=== PATIENT | male | born 1980 | race Caucasian/White ===

== ENCOUNTER 2022-08-16 17:26 | Emergency (ER) | payer BC ==
[~2022-08-16] VITALS: Ht 180.3 cm; Wt 87.5 kg
[2022-08-16] MEDS ORDERED: AMLODIPINE BESYLATE 10 MG TABLET ONE (18:08)
[2022-08-16] MEDS ORDERED: ASPIRIN 81 MG TAB.CHEW ONE (18:08)
[2022-08-16 18:27] LABS: BASOPHILS # (AUTO) 0.2 K/uL (0.0-0.2); BASOPHILS % (AUTO) 1.9 % (0.0-2.0); EOSINOPHILS % (AUTO) 3.1 % (0.0-6.0); HEMATOCRIT 50 % (39-51); HEMOGLOBIN 16.6 g/dL (13.5-17.5); LYMPHOCYTES # (AUTO) 1.6 K/uL (0.8-4.8); LYMPHOCYTES % (AUTO) 18.4 % (20.0-44.0); MEAN CORPUSCULAR HGB CONC 34 g/dl (31.0-36.0); MEAN CORPUSCULAR VOLUME 88 fL (80-96); MONOCYTES # (AUTO) 0.7 K/uL (0.1-1.30); MONOCYTES % (AUTO) 8.4 % (2.0-12.0); NEUTROPHILS # (AUTO) 5.8 K/uL (1.8-8.9); NEUTROPHILS % (AUTO) 68.2 % (43.0-81.0); PLATELET COUNT (AUTO) 319 K/uL (150-450); RED BLOOD CELL COUNT(AUTO) 5.63 MIL/uL (4.5-6.0); WHITE BLOOD COUNT (AUTO) 8.6 K/uL (4.3-11.0)
[2022-08-16] MEDS ORDERED: AMLODIPINE BESYLATE 5 MG TABLET PO ONE (18:30)
[2022-08-16] MEDS ORDERED: ASPIRIN 81 MG TAB.CHEW PO ONE (18:30)
[2022-08-16 18:35] LABS: CALCIUM, SERUM 9.4 mg/dL (8.5-10.1); CREATININE 1.4 mg/dL (0.6-1.3); POTASSIUM 4.1 mmol/L (3.5-5.1)
[2022-08-16] MEDS ORDERED: AMLO10TA4 PO (18:49)
[2022-08-16 19:13] VITALS: BP 175/105
== END 2022-08-16 18:59 | disposition home or self-care (01) ==
LOC: ER 17:38
DX: I10 Essential (primary) hypertension (principal)
CPT/HCPCS: 36415; 71045-TC; 80048-TC; 85025-TC